=== PATIENT | male | born 1975 | race Caucasian/White ===

== ENCOUNTER 2018-06-03 13:15 | Day surgery (SDC) | payer OTHER ==
[~2018-06-03 13:15] MED LIST: Buffered Lidocaine 0.9% SYRIN* 5 ML/SYR SYRINGE INTRADERM ONE; Dexamethasone IV* 4 MG/ML 1 ML (4 MG) IV SLOW PU ONE; Famotidine IV* 10 MG/ML 2 ML (20 mg) IV ONE; Lactated Ringers 1000 ML Bag* 1,000 ML IV SCH
[2018-06-03] MEDS ORDERED: Lidocaine 2% PF * 5 ML VIAL ONE (14:03)
[2018-06-03] MEDS ORDERED: Propofol* 10 MG/ML 20 ML BTL ONE (14:03)
[2018-06-03] MEDS ORDERED: fentaNYL* 50 MCG/ML 5 ML VIAL (250 MCG VIAL) ONE (14:03)
[2018-06-03] MEDS ORDERED: Midazolam* 1 MG/ML 2 ML VIAL (2 MG) ONE (14:03)
[2018-06-03] MEDS ORDERED: Dexamethasone IV* 4 MG/ML 1 ML (4 MG) ONE (14:11)
[2018-06-03] MEDS ORDERED: Famotidine IV* 10 MG/ML 2 ML (20 mg) ONE (14:12)
[2018-06-03] MEDS ORDERED: ceFAZolin 2 GM PREMIX in ORs 2 GM/50 ML BAG IVPB ONE (14:12)
[2018-06-03] MEDS ORDERED: hydrALAZINE IV* 20 MG/ML VIAL IV SLOW PU ONE (14:48)
[2018-06-03] MEDS ORDERED: hydrALAZINE IV* 20 MG/ML VIAL ONE (14:49)
[2018-06-03] MEDS ORDERED: Succinylcholine* 20 MG/ML 10 ML VIAL ONE (14:54)
[2018-06-03] MEDS ORDERED: PROCHLORPERAZINE INJ 5 MG/ML 2 ML VIAL IV PRN (15:50)
[2018-06-03] MEDS ORDERED: Naloxone* 0.4 MG/ML 1 ML VIAL IV PRN (15:50)
[2018-06-03] MEDS ORDERED: Acetaminophen TAB* 325 MG PO PRN (15:50)
[2018-06-03] MEDS ORDERED: Ketorolac INJ* 30 MG/ML 1 ML VIAL IV PRN (15:50)
[2018-06-03] MEDS ORDERED: DiMENhydriNATE IV* 50 MG/ML VIAL IV PUSH PRN (15:50)
[2018-06-03] MEDS ORDERED: fentaNYL* 50 MCG/ML 2 ML VIAL (100 MCG VIAL) IV PRN (15:50)
[2018-06-03] MEDS ORDERED: HYDROcodone/ACETAMIN 5-325 MG* 1 TAB PO PRN (15:50)
[2018-06-03] MEDS ORDERED: hydrALAZINE IV* 20 MG/ML VIAL IV SLOW PU PRN (15:53)
[2018-06-03] MEDS ORDERED: Bupivacaine 0.5%* 50 ML VIAL ONE (16:25)
[2018-06-03] MEDS ORDERED: Ondansetron INJ* 2 MG/ML VIAL ONE (16:55)
[2018-06-03] MEDS ORDERED: Ketorolac INJ* 30 MG/ML 1 ML VIAL ONE (17:23)
[2018-06-03] MEDS ORDERED: HYDROcodone/ACETAMIN 5-325 MG* 1 TAB ONE (17:27)
[2018-06-03 17:58] VITALS: BP 136/99
--- NOTE | 2018-06-03 19:00 | OP ---
Operative Report - Blank - Operative Report Date of Operation: 06/03/18 Note: PATIENT: Josefa Solitario DATE OF : 1975 DATE OF SURGERY: 06/03/2018 SURGEON: Wilmer Schwartz MD CHIEF CONTROLLER: DESHAWN Laird, whos assistance was necessary for positioning, retraction, help with instrumentation, and closure. ANESTHESIOLOGIST: Dr. Alexandro Kingston PREOPERATIVE DIAGNOSIS: Right ankle synovitis, painful retained hardware, ankle instability, peroneal tendinitis. POSTOPERATIVE DIAGNOSIS: Right ankle synovitis, painful retained hardware, ankle instability, peroneus brevis tendon tear, peroneus longus tendon tear, and tenosynovitis of the peroneal tendon sheath. OPERATION: 1. Right ankle arthroscopy with extensive debridement. 2. Right ankle modified Brostrom procedure lateral ligament reconstruction. 3. Right ankle removal of deep hardware 4. Right ankle peroneus brevis tendon repair 6. Right ankle peroneus longus tendon repair 7. Right ankle tenosynovectomy of peroneal tendon sheath ANESTHESIA: GETA IMPLANTS: none TOURNIQUET TIME: Less than 2 hours with a well-padded thigh tourniquet at 250mmHg SPECIMENS: none ESTIMATED BLOOD LOSS: minimal COMPLICATIONS: none STATUS: Stable from the operating room to the recovery room and then home. INDICATIONS FOR PROCEDURE: Josefa had a prior ankle fracture ORIF and has persistent pain and instability. Both operative and non operative treatment alternatives were reviewed. Further, the nature and risks of surgery were reviewed in careful detail, in the office as well as the pre-operative holding area. Our discussions regarding the risks of surgery included, but were not limited to, infection, wound problems, nerve injury, neuroma, RSD, persistent symptoms, blood clot, recurrent instability, failure of the surgery, and even the remote chance of catastrophic complication, including loss of limb. DESCRIPTION OF PROCEDURE: The patient was seen in the preoperative holding unit and informed written consent was obtained. The appropriate extremity was marked. The patient was then brought to the operating room and carefully positioned on the operating room table. Anesthesia was induced. All bony prominences were padded with great care. A well-padded thigh tourniquet was placed. A chlorhexidine based pre- scrub was performed followed by a chloraprep prep and drape in standard sterile fashion. A surgical safety pause was then conducted in which we confirmed the appropriate patient, extremity, planned procedure, availability of equipment, indication and administration of prophylactic antibiotics, and DVT prophylaxis in the form of a compression boot on the non-surgical extremity. An Esmarch exsanguination of the limb was then performed and the tourniquet inflated. The leg was positioned in the noninvasive ankle arthroscopy leg cowart setup. I began by establishing the anteromedial portal. I utilized a spinal needle for this. Great care was taken to protect the superficial neurovascular structures. Under direct visualization, I then established an anterolateral portal. Great care was taken to protect the superficial peroneal nerve. I utilized the full radius shaver to remove a considerable amount of synovitis from the anterior aspect of the ankle joint. This was carefully removed to give a nice view of the ankle joint. There was some mild fraying of the cartilage on the talar dome centrally. There was also extensive synovitis and scar tissue at the anterior ankle joint, especially laterally. I utilized the full radius shaver to remove the synovitis and scar tissue. I removed the arthroscopic equipment and closed the portals utilizing 3-0 nylon suture. I then made a longitudinal incision overlying the distal fibula and curved distally in line with the fourth metatarsal. I utilized his prior incision and extended it distally. Dissection was carried down through the soft tissues. Superficial hemostasis was obtained. I dissected down to the lateral aspect of the fibula at the periosteal and ligamentous layer. Care taken to protect the sural nerve, which was not visualized during the procedure. I carefully incised the SPR off of the posterior fibula to expose the peroneal tendons. I retracted the peroneal tendons and exposed the distal fibula plate and screws. The screw heads were exposed and then removed with a screwdriver. The plate was then removed. Dissection of the tendons was then carried distally. There was a large amount of inflamed tenosynovium within the tendon sheath. An extensive synovectomy was performed. Additionally, there was a low-lying peroneus brevis muscle belly which was debrided and excised. The tendons were explored at this time for any tears. There was extensive tearing and degeneration of the peroneus brevis tendon at the level of the distal fibula, where it had been rubbing on the hardware. I debrided away the worst of the degenerative tendon, and any frayed tendon. It was quite an extensive tear. I then utilized a 3-0 Ethibond suture to repair the tendon in a tubularization fashion. I then explored the peroneus longus tendon, which did have a small longitudinal split tear at the level of the distal fibula. This tear was then repaired with a 3-0 Ethibond suture. At this point, I carefully inspected the peroneal groove at the posterior aspect of the fibula. This was deemed to have adequate depth so the decision was made not to perform a groove deepening procedure. So at this point I carefully planned out the repair of the superior peroneal retinaculum. I then reduced the tendons and they sat nicely in the retro-fibular groove. The wound was copiously irrigated. I repaired the SPR utilizing #1 Vicryl suture in a transosseous as well as to the periosteum, horizontal mattress suture pattern. I utilized multiple sutures for this repair, appropriately tensioning the SPR. I was able to pass a [place] under the repaired SPR without difficulty after the repair. I then dissected anteriorly to expose the anterolateral ankle ligaments. We protected the superficial peroneal nerve at all times, which was not visualized within our field. Once we had adequately exposed a pocket anterior to the ligaments, we sharply took the ligaments down off of the anterior and distal aspect of the fibula using a 15 blade. The inferior extensor retinaculum was exposed and protected for subsequent repair later in the procedure. I then utilized a rongeur to make a trough along the fibula to receive the reconstructed ligaments. I then utilized a 0.062 inch K-wire to drill holes in the fibula for a transosseous suture repair of the lateral ligaments utilizing a horizontal mattress suture. Multiple #1 Vicryl sutures were passed through the fibula and then through the ligaments and then back through the fibula. These sutures were all passed with great care taken to appropriately tension both the ATFL as well as the CFL in order to get a nice tight repair. We held the ankle in a dorsiflexed and everted position while the ligaments and sutures were tied down over the fibular bone bridges. These held the ankle in a much improved position with excellent tension on the ligaments. We then utilized a rotational flap from the periosteum overlying the distal fibula to augment the repair. This was sewn down using a horizontal mattress stich overlying the ATFL. We further augmented the repair by bringing the inferior extensor retinaculum up to the fibula. There was a much improved anterior drawer at this point as compared to pre-operatively. The wound was then copiously irrigated and closed in a layered fashion utilizing 3-0 Monocryl and skin tal. A sterile dressing was applied and the ankle was splinted in a neutral position. The patient was then awakened from anesthesia and transferred to the recovery room in stable condition. There were no complications. All needle and sponge counts were correct at the end of the case. ATTESTATION: I attest I was present and scrubbed and performed the critical portions of the procedure myself. POSTOPERATIVE PLAN: The patient will remain nonweightbearing for an anticipated duration of six weeks. Follow up will be in two weeks for likely suture removal , Steri-Strip application and transition into a short leg cast.
== END 2018-06-03 18:05 | disposition home or self-care (01) ==
LOC: OR 13:15
PROVIDERS: ATTEND Orthopaedic Surgery
DX: M25.371 Other instability, right ankle (principal); M76.71 Peroneal tendinitis, right leg; T84.84XA Pain due to internal orthopedic prosthetic devices, implants and grafts, initial encounter; M65.871 Other synovitis and tenosynovitis, right ankle and foot; Z87.828 Personal history of other (healed) physical injury and trauma; Z87.891 Personal history of nicotine dependence; I10 Essential (primary) hypertension; K21.9 Gastro-esophageal reflux disease without esophagitis
CPT/HCPCS: 88300; C1769; J0330; J0360; J0690; J1100; J1885; J2250; J2405; J2704; J3010